=== PATIENT | female | born 1950 | race Caucasian/White ===

== ENCOUNTER → 2016-08-17 10:12 | Outpatient (CLI) | payer MEDICARE, BC ==
[2016-01-12 13:07] VITALS: BMI 24.5
[~2016-08-17 10:12] MED LIST: BONIVA150 MG PO; BREO ELLIPTA 21 EACH; LEVAQUIN500 MG PO; MEDROL DOSE PACK4 MG PO; NEURONTIN 300300 MG PO; REGLAN10 MG PO; RESTORIL15 MG PO; SPIRIVA RESPIMAT; SPIRIVA18 MCG INH; VENTOLIN HFA18 GM INH; VITAMIN D250000 UNIT PO
[2016-08-18 07:17] LABS: IMMUNOGLOBULIN E 19 IU/mL (0-100)
[2016-08-20 12:12] LABS: IMMUNOGLOBULIN A 17 mg/dL (87-352); IMMUNOGLOBULIN G 3366 mg/dL (700-1600)
== END | disposition home or self-care (01) ==
LOC: D.LAB 06-21 08:15 → D.RT 06-21 09:00
PROVIDERS: Internal Medicine Pulmonary Disease
DX: J44.9 Chronic obstructive pulmonary disease, unspecified (principal)

== ENCOUNTER 2016-11-06 13:42 | Emergency (ER) | payer MEDICARE, BC ==
[2016-01-12 13:07] VITALS: BMI 24.5
[2016-11-06 17:11] LABS: BASOPHILS 0.4 % (0.0-2.0); EOSINOPHILS 0.4 % (0-7); HEMATOCRIT 36.1 % (36.0-48.0); LYMPHOCYTES 30.8 % (15-50); MCH 30.7 pg (26.0-34.0); MCHC 33.2 g/dL (31.0-37.0); MCV 92.3 fL (80.0-100.0); MEAN PLATELET VOLUME 9.3 fL (7.4-10.4); NEUTROPHILS 62.4 % (40-80); PLATELET COUNT 238 10x3/uL (130-400); RBC 3.91 10x6/uL (4.00-5.40); RDW 13.5 % (11.5-14.5); WBC 5.2 10x3/uL (4.8-10.8)
[2016-11-06 17:24] LABS: APPEARANCE CLEAR (CLEAR); BILIRUBIN NEGATIVE (NEGATIVE); COLOR YELLOW (YELLOW); GLUCOSE NEGATIVE (NEGATIVE); KETONE NEGATIVE (NEGATIVE); LEUKOCYTE ESTERASE NEGATIVE (NEGATIVE); NITRITE NEGATIVE (NEGATIVE); PROTEIN NEGATIVE (NEGATIVE); UROBILINOGEN NORMAL (NORMAL)
[2016-11-06 18:08] LABS: ALBUMIN 3.4 g/dL (3.4-5.0); ANION GAP 6.8 mmol/L (8-16); BILIRUBIN - TOTAL 0.2 mg/dL (0.2-1.3); CALCIUM 8.7 mg/dL (8.5-10.1); CARBON DIOXIDE 32.3 mmol/L (21.0-32.0); CREATININE - SERUM 0.9 mg/dL (0.6-1.3); POTASSIUM - SERUM 4.1 mmol/L (3.5-5.1); PROTEIN - SERUM 8.5 g/dL (6.4-8.2)
== END 2016-11-06 18:48 | disposition home or self-care (01) ==
LOC: D.ER 13:42
PROVIDERS: Nurse Practitioner Family
DX: J20.9 Acute bronchitis, unspecified (principal); J44.1 Chronic obstructive pulmonary disease with (acute) exacerbation; R06.00 Dyspnea, unspecified

== ENCOUNTER 2016-11-09 20:53 | Emergency (ER) | payer MEDICARE, BC ==
[2016-01-12 13:07] VITALS: BMI 24.5
== END 2016-11-09 22:00 | disposition left against medical advice (07) ==
LOC: D.ER 20:53
DX: R09.89 Other specified symptoms and signs involving the circulatory and respiratory systems (principal)

== ENCOUNTER 2016-11-20 15:33 | Inpatient (IN) | payer MEDICARE, BC ==
[~2016-11-20] VITALS: Ht 162.6 cm; Wt 74.3 kg
[2016-11-20 16:12] VITALS: BP 134/67
[2016-11-20 16:23] LABS: HEMATOCRIT 39.8 % (36.0-48.0); HEMOGLOBIN 13.4 g/dL (12-16); MCH 31.2 pg (26.0-34.0); MCHC 33.7 g/dL (31.0-37.0); MCV 92.6 fL (80.0-100.0); MEAN PLATELET VOLUME 9.4 fL (7.4-10.4); PLATELET COUNT 226 10x3/uL (130-400); RDW 13.1 % (11.5-14.5); WBC 2.8 10x3/uL (4.8-10.8)
[2016-11-20] MEDS ORDERED: TRAZODONE HCL150 MG PO (16:28)
[2016-11-20] MEDS ORDERED: SINGULAIR10 MG PO (16:29)
[2016-11-20] MEDS ORDERED: PROTONIX40 MG PO (16:30)
[2016-11-20] MEDS ORDERED: ATIVAN2 MG PO (16:30)
[2016-11-20] MEDS ORDERED: ZOLOFT100 MG PO (16:30)
[2016-11-20] MEDS ORDERED: TYLENOL W/CODEI1 TAB PO (16:31)
[2016-11-20] MEDS ORDERED: ULTRAM50 MG PO (16:32)
[2016-11-20 16:36] VITALS: BP 134/67; BMI 29.2
[2016-11-20 16:53] LABS: ANION GAP 7.1 mmol/L (8-16); BILIRUBIN - TOTAL 0.17 mg/dL (0.2-1.3); CALCIUM 8.9 mg/dL (8.5-10.1); CARBON DIOXIDE 34.1 mmol/L (21.0-32.0); CREATININE - SERUM 0.9 mg/dL (0.6-1.3); POTASSIUM - SERUM 3.2 mmol/L (3.5-5.1); PROTEIN - SERUM 8.7 g/dL (6.4-8.2)
[2016-11-20 17:24] LABS: EOSINOPHILS 1 % (0-7); LYMPHOCYTES 43 % (15-50); MONOCYTES 6 % (2-11); NEUTROPHILS 50 % (40-80); PLATELET ESTIMATE NORMAL
[2016-11-20 19:00] VITALS: BP 138/63
[2016-11-21 06:12] LABS: ALBUMIN 2.8 g/dL (3.4-5.0); ALKALINE PHOSPHATASE 100 U/L (46-116); ALT (SGPT) 25 U/L (10-68); BILIRUBIN - TOTAL 0.12 mg/dL (0.2-1.3); CALC OSMOLALITY 281 mosm/kg (275-300); CALCIUM 8.6 mg/dL (8.5-10.1); CARBON DIOXIDE 37.4 mmol/L (21.0-32.0); CHLORIDE - SERUM 101 mmol/L (98-107); CREATININE - SERUM 0.7 mg/dL (0.6-1.3); GLUCOSE 162 mg/dL (74-106); SODIUM 139 mmol/L (136-145); UREA NITROGEN 13 mg/dL (7-18); eGFR NON AFRICAN AMERICAN 88 mL/min (90-120)
[2016-11-21 06:21] LABS: POTASSIUM - SERUM 4.1 mmol/L (3.5-5.1)
--- NOTE | 2016-11-21 06:30 | NUR ---
RECEIVED PT REPORT. NO OTHER NEEDS AT THIS TIME. WILL CONTINUE POC....
--- NOTE | 2016-11-21 06:44 | NUR ---
PT LYING IN BED, EYES CLOSED, RESPIRATIONS EVEN AND UNLABORED. PT EASILY ROUSABLE TO VERBAL STIMULI. PT DENIES ANY ACUTE NEEDS. CONTINUE TO MONITOR CLOSELY.
[2016-11-21 07:25] LABS: BASOPHILS 0 % (0.0-2.0); EOSINOPHILS 0 % (0-7); HEMATOCRIT 39.4 % (36.0-48.0); LYMPHOCYTES 31.9 % (15-50); MCH 30.7 pg (26.0-34.0); MCV 92.9 fL (80.0-100.0); MEAN PLATELET VOLUME 9.4 fL (7.4-10.4); MONOCYTES 4.4 % (2-11); NEUTROPHILS 63.7 % (40-80); PLATELET COUNT 237 10x3/uL (130-400); RBC 4.24 10x6/uL (4.00-5.40); RDW 13.4 % (11.5-14.5)
[2016-11-21 07:26] LABS: WBC 0.9 10x3/uL (4.8-10.8)
[2016-11-21 08:50] VITALS: BP 143/60
[2016-11-21 10:06] VITALS: Ht 162.6 cm; Wt 74.3 kg
[2016-11-21 11:54] VITALS: BP 129/66
--- NOTE | 2016-11-21 12:14 | NUR ---
PT IS ALERT. ASSESSMENT DONE PER FLOWSHEET. NO OTHER NEEDS AT THIS TIME. WILL CONTINUE TO MONITOR.
--- NOTE | 2016-11-21 13:05 | NUR ---
PT IS ALERT. NO SS OF DISTRESS WILL CONTINUE TO MONITOR.
[2016-11-21 16:09] VITALS: BP 152/68
--- NOTE | 2016-11-21 16:16 | NUR ---
IV ACCESS-20 GAUGE INSERTED IN LEFT HAND FOR ACCESS. SANJUANITA ELLIS RN
[2016-11-21 19:00] VITALS: BP 159/74
[2016-11-22] VITALS (7 sets, daily range): BP systolic 126–164; BP diastolic 63–88
[2016-11-22 06:06] LABS: HEMATOCRIT 36.9 % (36.0-48.0); HEMOGLOBIN 12.1 g/dL (12-16); MCH 30.8 pg (26.0-34.0); MCHC 32.8 g/dL (31.0-37.0); MCV 93.9 fL (80.0-100.0); PLATELET COUNT 245 10x3/uL (130-400); RBC 3.93 10x6/uL (4.00-5.40); RDW 13.9 % (11.5-14.5); WBC 21.9 10x3/uL (4.8-10.8)
[2016-11-22 06:35] LABS: ALBUMIN 2.5 g/dL (3.4-5.0); ALKALINE PHOSPHATASE 82 U/L (46-116); ALT (SGPT) 21 U/L (10-68); BILIRUBIN - TOTAL 0.19 mg/dL (0.2-1.3); CALC OSMOLALITY 288 mosm/kg (275-300); CALCIUM 8.6 mg/dL (8.5-10.1); CHLORIDE - SERUM 106 mmol/L (98-107); CREATININE - SERUM 0.8 mg/dL (0.6-1.3); GLUCOSE 122 mg/dL (74-106); POTASSIUM - SERUM 3.8 mmol/L (3.5-5.1); PROTEIN - SERUM 7.7 g/dL (6.4-8.2); SODIUM 144 mmol/L (136-145); UREA NITROGEN 14 mg/dL (7-18); eGFR NON AFRICAN AMERICAN 75 mL/min (90-120)
[2016-11-22 07:02] LABS: LYMPHOCYTES 3 % (15-50); MONOCYTES 4 % (2-11); NEUTROPHILS 79 % (40-80)
[2016-11-22 07:03] LABS: HYPOCHROMASIA OCC; PLATELET ESTIMATE NORMAL
--- NOTE | 2016-11-22 07:26 | NUR ---
PATIENT HAD COMPLAINTS OF PAIN 8/10 ON PAIN SCALE. PATIENT REPOSITIONED AND GIVEN PRN MORPHINE FOR PAIN. BED LOW, CALL LIGHT IN REACH, RAILS UP X2
--- NOTE | 2016-11-22 08:22 | NUR ---
SPOKE TO RADIOLOGY AND WAS TOLD THE CTA WAS DONE LAST NIGHT. OK FOR PATIENT TO EAT TODAY. BREAKFAST TRAY GIVEN.
--- NOTE | 2016-11-22 08:25 | NUR ---
AM ROUNDING MADE WITH PATIENT IN NEUTRO PRECAUTIONS. CARE MANAGEMENT COORDINATOR SAID THAT DR DEGROOT TOLD HER THAT SHE COULD COME OUT OF ISOLATION BUT NO ORDER SEEN. LEFT HAND SEEN WITH SALINE LOCK, LEFT AC WITH NS INFUSING AT 75 CC/HR. ON HEART MONITOR SHOWING ST, HR 106. ON 2L PER NC AT PRESENT. ON EP, WILL MONITOR LABS.
--- NOTE | 2016-11-22 08:43 | NUR ---
0842-CALL PLACED TO DR DEGROOT OFFICE TO SEE ABOUT ISOLATION, NEW ORDERS RECEIVED.
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
--- NOTE | 2016-11-22 16:11 | NUR ---
Patient Name: HUMPHREY SCOTT Admission Status: Urgent Accout number: [id number] Admission Date: 11-20-2016 : 1950 Admission Diagnosis:ACUTE AND CHRONIC RESPIRATORY FAILURE WITH HYPOXIA Attending: ANTONIETA Current LOS: 2 Anticipated DC Date: TO BE DETERMINED Planned Disposition: Home Primary Insurance: MEDICARE A & B Discharge Planning Comments: * Is the patient Alert and Oriented? Yes 0 * How many steps to enter\exit or inside your home? 3-4 0 * PCP DR. RODRIGUEZ 0 * Pharmacy [facility] * Preadmission Environment Home with Family 0 * ADLs Independent 0 * Equipment Cane Nebulizer Other Oxygen Shower Chair Walker 0 * Other Equipment HOME AND PORTABLE OXYGEN PULSE OXIMETER [employer] - MEDICAL EQUIPMENT PROVIDER PREFERENCE 0 * List name and contact numbers for known caregivers / representatives who currently or will assist patient after discharge: BOBBY SCOTT, SPOUSE, 0 * Community resources currently utilized None 0 * Please name any agencies selected above. NONE 0 * Additional services required to return to the preadmission environment? No 0 * Can the patient safely return to the preadmission environment? Yes 0 * Has this patient been hospitalized within the prior 30 days at any hospital? No 0 CM MET WITH PT IN ROOM TO DISCUSS DISCHARGE PLANNING AND NEEDS. PT REPORTS LIVING AT HOME INDEPENDENTLY WITH HER SPOUSE. PT HAS HOME AND PORTABLE OXYGEN, CANE, WALKER SHOWERCHAIR, NEBULIZER AND PULSE OXIMETER, PROVIDED BY [employer]. PT HAS NO OUTSIDE SERVICES ASSISTING IN THE HOME. CM DISCUSSED AVAILABILITY OF HOME HEALTH, REHAB SERVICES AND MEDICAL EQUIPMENT. PT DENIES DISCHARGE NEEDS, REPORTS HER SPOUSE WILL PICK HER UP FOR DISCHARGE HOME. CM LEFT HOME HEALTH INFORMATION WITH PT ALONG WITH CM CONTACT INFORMATION FOR CONSIDERATION BY PT. PT PLANS TO DISCHARGE HOME WITH SPOUSE, DOES NOT ANTICIPATE DISCHARGE NEEDS, WOULD CONSIDER HOME HEALTH IF THE DOCTOR FEELS IT TO BE NECESSARY. It Support Analyst: Darron Hinton
--- NOTE | 2016-11-22 19:25 | NUR ---
RECEIVED REPORT FROM DAY NURSE, AT BEDSIDE, COMPLAINS ON PAIN, WILL GIVE MORPHINE, BED IS LOW, SRX2, WILL CONTINUE TO MONITOR. CALL LIGHT IN REACH
[2016-11-23] VITALS: BP 119/52
--- NOTE | 2016-11-23 04:16 | NUR ---
PRECISION OPTICS TECHNICIAN AT BEDSIDE TO OBTAIN VITALS, CALL LIGHT IN REACH. WILL CONTINUE WITH PLAN OF CARE.
[2016-11-23 04:45] LABS: BASOPHILS 0.1 % (0.0-2.0); EOSINOPHILS 0 % (0-7); HEMATOCRIT 38.2 % (36.0-48.0); HEMOGLOBIN 12.2 g/dL (12-16); IMMATURE GRANULOCYTES 0.9 % (0-5); LYMPHOCYTES 4.2 % (15-50); MCH 30.6 pg (26.0-34.0); MCHC 31.9 g/dL (31.0-37.0); MCV 95.7 fL (80.0-100.0); MEAN PLATELET VOLUME 9.1 fL (7.4-10.4); MONOCYTES 1.1 % (2-11); NEUTROPHILS 93.7 % (40-80); PLATELET COUNT 248 10x3/uL (130-400); RBC 3.99 10x6/uL (4.00-5.40); RDW 14.5 % (11.5-14.5); WBC 17.6 10x3/uL (4.8-10.8)
--- NOTE | 2016-11-23 05:01 | NUR ---
PT HAS REST ALL NIGHT, CALL LIGHT IN REACH, BED IS LOW, SRX2, WILL CONTINUE TO MONITOR
[2016-11-23 05:23] LABS: ERYTHROCYTE SEDIMENTATION RATE 14 mm/hr (0-30)
[2016-11-23 05:24] LABS: ALBUMIN 2.4 g/dL (3.4-5.0); ALKALINE PHOSPHATASE 92 U/L (46-116); ALT (SGPT) 17 U/L (10-68); BILIRUBIN - TOTAL 0.19 mg/dL (0.2-1.3); CALC OSMOLALITY 294 mosm/kg (275-300); CALCIUM 8.5 mg/dL (8.5-10.1); CARBON DIOXIDE 34.2 mmol/L (21.0-32.0); CHLORIDE - SERUM 110 mmol/L (98-107); CREATININE - SERUM 0.8 mg/dL (0.6-1.3); GLUCOSE 135 mg/dL (74-106); POTASSIUM - SERUM 3.6 mmol/L (3.5-5.1); PROTEIN - SERUM 7.4 g/dL (6.4-8.2); SODIUM 147 mmol/L (136-145); UREA NITROGEN 16 mg/dL (7-18); eGFR NON AFRICAN AMERICAN 75 mL/min (90-120)
[2016-11-23 05:25] LABS: C-REACTIVE PROTEIN 0.2 mg/dL (0.0-0.9)
--- NOTE | 2016-11-23 07:18 | NUR ---
AM ROUNDS - PT IN BED SLEEPING WITH EQUAL AND NON LABORED BREATHING. 2L O2 VIA NC. LEFT HAND IV WITH NS RUNNING AT 75 CC/HR AND LEFT AC THAT IS SL. WILL CONTINUE TO MONITOR.
[2016-11-23 08:19] VITALS: BP 181/82
--- NOTE | 2016-11-23 10:42 | NUR ---
PATIENT'S IV FLUIDS IS DECREASED TO 25 CC/HR UNTIL MD MAKES ROUNDS SHE IS HAVING NORE EDEMA TO ALL EXTREMITIES.
--- NOTE | 2016-11-23 10:44 | NUR ---
PT C/O OF PAIN TO LEFT SIDE 02/18. PT STATES THE MEDICATION SHE HAS ORDERED DOES NOT WORK. STATES THAT SHE TAKES ULTRAM AT HOME. PAGE INTO [facility]
--- NOTE | 2016-11-23 10:50 | NUR ---
[facility] CALLED BACK WITH NEW PAIN MEDICATION ORDERS.
[2016-11-23 12:44] VITALS: BP 170/80
--- NOTE | 2016-11-23 13:41 | NUR ---
Nutrition Follow Up: Pt reported that her appetite was okay. She refused supplements at this time. Pt appeared in a great deal of pain. Spoke with RN who reported that pt had not been eating much despite encouragement from staff, pt's . Pt is eating 17% meal avg on an AHA diet. Wt loss 1# since admit. +BM 11/23/16. Labs reviewed. Meds noted including NS @ 75 ml/hr, Solu-Medrol, Vit D. Pt is not meeting est nutritional needs. Will liberalize diet to regular to promote po intake. Will continue to send selective menus and honor food preferences. RD following.
[2016-11-23 16:00] VITALS: BP 160/71
[2016-11-23 19:00] VITALS: BP 176/86
--- NOTE | 2016-11-23 19:30 | NUR ---
RESUMED CARE OF PT, AT BED SIDE,IV-L.HAND-NS-75, LAC-SL, 02-2L, BED IS LOW, SRX2, CALL LIGHT IN REACH, WILL CONTINUE TO MONITOR
--- NOTE | 2016-11-23 23:10 | NUR ---
PT RESTING QUIETLY WITHOUT C/O OR DISTRESS NOTED. FEW NEEDS VOICED. CALL LIGHT WITHIN REACH. WILL CONT TO MONITOR.
[2016-11-24] VITALS: BP 149/73
[2016-11-24 04:00] VITALS: BP 169/87
[2016-11-24 04:48] LABS: BASOPHILS 0 % (0.0-2.0); EOSINOPHILS 0 % (0-7); HEMOGLOBIN 11.5 g/dL (12-16); IMMATURE GRANULOCYTES 0.5 % (0-5); LYMPHOCYTES 4.5 % (15-50); MCH 30.1 pg (26.0-34.0); MCHC 31.9 g/dL (31.0-37.0); MCV 94.2 fL (80.0-100.0); MEAN PLATELET VOLUME 9.1 fL (7.4-10.4); MONOCYTES 1.2 % (2-11); NEUTROPHILS 93.8 % (40-80); PLATELET COUNT 219 10x3/uL (130-400); RBC 3.82 10x6/uL (4.00-5.40); RDW 14.2 % (11.5-14.5); WBC 10.3 10x3/uL (4.8-10.8)
[2016-11-24 05:13] LABS: ALBUMIN 2.3 g/dL (3.4-5.0); ALKALINE PHOSPHATASE 90 U/L (46-116); ALT (SGPT) 16 U/L (10-68); BILIRUBIN - TOTAL 0.21 mg/dL (0.2-1.3); CALC OSMOLALITY 286 mosm/kg (275-300); CALCIUM 8.1 mg/dL (8.5-10.1); CARBON DIOXIDE 36.5 mmol/L (21.0-32.0); CHLORIDE - SERUM 106 mmol/L (98-107); CREATININE - SERUM 0.7 mg/dL (0.6-1.3); GLUCOSE 141 mg/dL (74-106); POTASSIUM - SERUM 3.1 mmol/L (3.5-5.1); PROTEIN - SERUM 6.8 g/dL (6.4-8.2); SODIUM 143 mmol/L (136-145); UREA NITROGEN 13 mg/dL (7-18); eGFR NON AFRICAN AMERICAN 88 mL/min (90-120)
--- NOTE | 2016-11-24 07:47 | NUR ---
RESTS WITH EYES CLOSED. IV PATENT. CALL LIGHT IN REACH. WILL MONITOR NEEDS.
[2016-11-24 08:12] VITALS: BP 146/65
--- NOTE | 2016-11-24 08:19 | NUR ---
PT RESTING IN BED WITH EYES OPEN CALL LIGHT IN REACH WILL MONITER
[2016-11-24 11:49] VITALS: BP 124/63
--- NOTE | 2016-11-24 14:40 | NUR ---
PT RESTING IN BED WITH EYES OPEN AT BEDSIDE CALL LIGHT IN REACH INSTRUCTED PT ON BREATHING THRU HER NOSE AND OUT HER MOUTH
[2016-11-24 15:51] VITALS: BP 159/78
[2016-11-24 20:07] LABS: ANA REFLEX - DIRECT Negative (Negative)
[2016-11-24 20:57] VITALS: BP 125/83
[2016-11-25 00:30] VITALS: BP 147/68
--- NOTE | 2016-11-25 02:12 | NUR ---
PT RESTING WELL WITHOUT C/O OR DISTRESS NOTED. CALL LIGHT WITHIN REACH. NO NEEDS VOICED. WILL MONITOR.
--- NOTE | 2016-11-25 03:21 | NUR ---
ASSESSMENT COMPLETE, SLEEPING, CALL LIGHT IN REACH, BED IS LOW, SRX2, WILL CONTINUE TO MONITOR
[2016-11-25 04:30] VITALS: BP 171/88
--- NOTE | 2016-11-25 07:41 | NUR ---
PATIENT GIVEN PRN ULTRAM FOR BACK AND SIDE PATIENT. TELEMETRY RUNNING SR 72. OXYGEN ON AT 2L PER N/C LEFT HAND PERIPHERAL NS AT 50CC/HR. ALERT/ORIENT X4
[2016-11-25 08:06] LABS: BASOPHILS 0.2 % (0.0-2.0); EOSINOPHILS 0 % (0-7); HEMATOCRIT 39.9 % (36.0-48.0); HEMOGLOBIN 13.3 g/dL (12-16); IMMATURE GRANULOCYTES 1.2 % (0-5); LYMPHOCYTES 13.1 % (15-50); MCHC 33.3 g/dL (31.0-37.0); MEAN PLATELET VOLUME 9.4 fL (7.4-10.4); MONOCYTES 5.9 % (2-11); NEUTROPHILS 79.6 % (40-80); PLATELET COUNT 245 10x3/uL (130-400); RBC 4.29 10x6/uL (4.00-5.40); RDW 14.1 % (11.5-14.5)
[2016-11-25 08:12] VITALS: BP 183/87
[2016-11-25 08:14] LABS: WBC 4.9 10x3/uL (4.8-10.8)
--- NOTE | 2016-11-25 08:21 | NUR ---
SCHDULED ATIVAN AND ZOLOFT GIVEN FOR ANXIEITY
[2016-11-25 08:24] LABS: ALBUMIN 2.7 g/dL (3.4-5.0); ALKALINE PHOSPHATASE 112 U/L (46-116); BILIRUBIN - TOTAL 0.31 mg/dL (0.2-1.3); CALCIUM 8.4 mg/dL (8.5-10.1); CARBON DIOXIDE 39.1 mmol/L (21.0-32.0); CHLORIDE - SERUM 101 mmol/L (98-107); CREATININE - SERUM 0.6 mg/dL (0.6-1.3); GLUCOSE 114 mg/dL (74-106); POTASSIUM - SERUM 3.2 mmol/L (3.5-5.1); PROTEIN - SERUM 7.9 g/dL (6.4-8.2); SODIUM 142 mmol/L (136-145); eGFR NON AFRICAN AMERICAN > 90 mL/min (90-120)
[2016-11-25 08:25] LABS: ALT (SGPT) 22 U/L (10-68); CALC OSMOLALITY 282 mosm/kg (275-300); UREA NITROGEN 9 mg/dL (7-18)
--- NOTE | 2016-11-25 11:40 | NUR ---
PRN ULTRUM PAIN MEDICATION GIVEN FOR BACK AND SIDE PAIN.
[2016-11-25 11:52] VITALS: BP 182/96
--- NOTE | 2016-11-25 12:36 | NUR ---
RESTS IN BED WITH EYES CLOSED. IV PATENT. CALL LIGHT IN REACH. WILL CONT. PLAN OF CARE.
--- NOTE | 2016-11-25 14:45 | NUR ---
PATIENT HAS A ROOM FULL OF VISITIORS.
[2016-11-25 15:13] VITALS: BP 164/79
--- NOTE | 2016-11-25 15:57 | NUR ---
PRN ULTRUM GIVEN. PERIPHERIAL LINE OUT ON LEFT HAND. NEW SITE 24 ASH[place] ON RIGHT HAND INSERTED
[2016-11-25 20:00] VITALS: BP 156/69
--- NOTE | 2016-11-25 20:50 | NUR ---
PT AWAKE, ALERT, ORIENTED, C/O GREAT PAIN IN HER LEFT SIDE AND BEING VERY ANXIOUS. PT STATES SHE HAS NOT HAD A GOOD DAY. PT DENIES ANY ACUTE NEEDS, WILL CONTINUE TO MONITOR CLOSELY. BED LOW, CALL LIGHT IN REACH, SIDE RAILS X 2, HOB 20 DEGREES.
[2016-11-26] VITALS: BP 115/65
[2016-11-26 04:00] VITALS: BP 147/76
--- NOTE | 2016-11-26 05:26 | NUR ---
PT LYING IN BED, EYES CLOSED, RESPIRATIONS EVEN AND UNLABORED. PT EASILY ROUSABLE TO VERBAL STIMULI, DENIES ANY ACUTE NEEDS. CONTINUE TO MONITOR CLOSELY.
[2016-11-26 06:11] LABS: CALCIUM 8.9 mg/dL (8.5-10.1); CHLORIDE - SERUM 99 mmol/L (98-107); CREATININE - SERUM 0.6 mg/dL (0.6-1.3); GLUCOSE 141 mg/dL (74-106); POTASSIUM - SERUM 3.4 mmol/L (3.5-5.1); SODIUM 140 mmol/L (136-145); eGFR NON AFRICAN AMERICAN > 90 mL/min (90-120)
[2016-11-26 06:13] LABS: CALC OSMOLALITY 280 mosm/kg (275-300); CARBON DIOXIDE 41.9 mmol/L (21.0-32.0); UREA NITROGEN 13 mg/dL (7-18)
[2016-11-26 06:34] LABS: BASOPHILS 0.3 % (0.0-2.0); EOSINOPHILS 0 % (0-7); HEMATOCRIT 39.8 % (36.0-48.0); HEMOGLOBIN 13.1 g/dL (12-16); IMMATURE GRANULOCYTES 1.2 % (0-5); LYMPHOCYTES 12.1 % (15-50); MCH 30.6 pg (26.0-34.0); MCHC 32.9 g/dL (31.0-37.0); MEAN PLATELET VOLUME 9.5 fL (7.4-10.4); MONOCYTES 8.9 % (2-11); NEUTROPHILS 77.5 % (40-80); PLATELET COUNT 245 10x3/uL (130-400); RBC 4.28 10x6/uL (4.00-5.40); RDW 13.8 % (11.5-14.5)
[2016-11-26 07:05] LABS: WBC 3.5 10x3/uL (4.8-10.8)
[2016-11-26 08:43] VITALS: BP 131/73
--- NOTE | 2016-11-26 10:00 | NUR ---
ADMINISTERED MORNING MEDICATIONS, AND 100MG OF ULTRAM FOR PAIN LEVEL OF 10/10. PT IN BED, IVPB ANTIBIOTIC STARTED TO RIGHT HAND. PT ASSESSED AT THIS TIME, PT DENIES ANY NEEDS AT THIS TIME. CALL LIGHT IN REACH, NAD NOTED, WILL CONTINUE TO MONITOR.
--- NOTE | 2016-11-26 11:38 | NUR ---
K OF 3.0, ADMINISTERED 40MEQ OF K PER PROTOCOL. PT STATED PAIN HAS GOTTEN A LITTLE BETTER, DENIES ANY OTHER NEEDS AT THIS TIME, STUDENT SUCCESS COUNSELOR AT BEDSIDE TO GET VITAL SIGNS, FAMILY AT BEDSIDE, NAD NOTED, WILL CONTINUE TO MONITOR.
[2016-11-26 13:14] VITALS: BP 165/80
--- NOTE | 2016-11-26 15:06 | NUR ---
PT IN BED, DENIES ANY NEEDS AT THIS TIME, CALL LIGHT IN REACH, NAD NOTED, WILL CONTINUE TO MONITOR.
[2016-11-26 17:16] VITALS: BP 149/86
--- NOTE | 2016-11-26 17:46 | NUR ---
Rehab Prescreen order received. The patient appears to be a good IRF candidate. Will follow at this time and plan for admit when ready for discharge from the acute hospital & ok with consulting physicians for discharge. Thank you for this referral! Georgia Butcher RN Clinical Liaison, [facility] Rehab/David
[2016-11-26 20:00] VITALS: BP 148/82
--- NOTE | 2016-11-26 20:14 | NUR ---
PT AWAKE, ALERT, ORIENTED, LYING IN BED, DENIES ANY ACUTE NEEDS. PT STATES HER IS TRYING TO GET HER TRANSFERRED TO [facility] FOR HER CHRONIC BACK PAIN. CONTINUE TO MONITOR CLOSELY. BED LOW, CALL LIGHT IN REACH, SIDE RAILS X 2, HOB 20 DEGREES.
[2016-11-27 00:36] VITALS: BP 124/69
[2016-11-27 03:09] LABS: MYCOPLASMA PNEUMO IGG <100 U/mL (0-99)
--- NOTE | 2016-11-27 04:31 | NUR ---
PT LYING IN BED ON RIGHT SIDE, EYES CLOSED, RESPIRATIONS EVEN AND UNLABORED. PT IS EASILY ROUSABLE TO VERBAL STIMULI. CONTINUE TO MONITOR CLOSELY. HOB 25-30 DEGREES. BED LOW, CALL LIGHT IN REACH, SIDE RAILS X 2.
[2016-11-27 04:59] VITALS: BP 124/96
[2016-11-27 05:41] LABS: CALC OSMOLALITY 280 mosm/kg (275-300); CALCIUM 8.5 mg/dL (8.5-10.1); CARBON DIOXIDE 39.5 mmol/L (21.0-32.0); CHLORIDE - SERUM 101 mmol/L (98-107); CREATININE - SERUM 0.7 mg/dL (0.6-1.3); POTASSIUM - SERUM 3.8 mmol/L (3.5-5.1); SODIUM 141 mmol/L (136-145); UREA NITROGEN 16 mg/dL (7-18); eGFR NON AFRICAN AMERICAN 88 mL/min (90-120)
[2016-11-27 05:59] LABS: GLUCOSE 85 mg/dL (74-106)
--- NOTE | 2016-11-27 07:10 | NUR ---
RECEIVED REPORT FROM ROOFING APPLICATOR NURSE ELIZABETH CUEVAS, PT IN BED, STATES THAT SHE IS STILL HAVING PAIN, EVEN THOUGH PAIN MED WAS GIVEN ABOUT AN HOUR AGO. ASKED PT IF SHE WANTED A HEAT PAD OR ICE TO PLACE ON HER BACK OR TO BE REPOSITIONED IN BED, PT STATED "NO", PT DENIES ANY OTHER NEEDS AT THIS TIME. CALL LIGHT IN REACH, NAD NOTED, WILL CONTINUE TO MONITOR.
[2016-11-27 07:22] LABS: BASOPHILS 0 % (0.0-2.0); EOSINOPHILS 0.5 % (0-7); HEMATOCRIT 41.4 % (36.0-48.0); HEMOGLOBIN 13.3 g/dL (12-16); LYMPHOCYTES 42.2 % (15-50); MCH 30.7 pg (26.0-34.0); MCHC 32.1 g/dL (31.0-37.0); MEAN PLATELET VOLUME 9.7 fL (7.4-10.4); MONOCYTES 13.2 % (2-11); NEUTROPHILS 42.1 % (40-80); PLATELET COUNT 244 10x3/uL (130-400); RBC 4.33 10x6/uL (4.00-5.40)
[2016-11-27 07:41] LABS: MCV 95.6 fL (80.0-100.0); WBC 4.4 10x3/uL (4.8-10.8)
[2016-11-27 07:49] VITALS: BP 147/79
--- NOTE | 2016-11-27 10:20 | NUR ---
ADMINISTERED 100MG OF ULTRAM FOR PAIN LEVEL OF 8/10. PT DENIES ANY AT THIS TIME, FAMILY AT BEDSIDE, NAD NOTED, CALL LIGHT IN REACH, WILL CONTINUE TO MONITOR.
[2016-11-27 11:19] VITALS: BP 150/84
[2016-11-27] MEDS ORDERED: NORVASC5 MG PO (14:02)
[2016-11-27] MEDS ORDERED: PREDNISONE10 MG PO (14:02)
[2016-11-27] MEDS ORDERED: MUCINEX DM ER1 EAC1 PO (14:02)
[2016-11-27] MEDS ORDERED: ZANAFLEX4 MG PO (14:09)
[2016-11-27] MEDS ORDERED: ALBUTEROL2.5 MG/3 M UPD (14:09)
[2016-11-27] MEDS ORDERED: VIIBRYD10 MG PO (14:10)
[2016-11-27] MEDS ORDERED: CARAFATE1 G PO (14:13)
--- NOTE | 2016-11-27 14:28 | NUR ---
Patient Name: HUMPHREY SCOTT Encounter No: [id number] : 1950 Primary Insurance: MEDICARE A & B Anticipated DC Date: TO BE DETERMINED Planned Disposition: Home DCP follow-up note: CM RECEIVED INPATIENT REHAB PRESCREEN ORDER, SPOKE TO PT AND FAMILY IN ROOM, DISCUSSED REHAB OPTIONS AND PROVIDERS. PT DOES NOT THINK SHE CAN TOLERATE ANY LEVEL OF PHYSICAL THERAPY WITH HER CURRENT BACK PAIN THAT HAS NOT BEEN TREATED. PT'S SON REPORTS HER SYMPTOMS ARE BEING DULLED BY PAIN MEDICATION BUT THE SOURCE OF PAIN HAS NOT BEEN TREATED. PT REPORTS THAT SHE WANTS TRANSFERRED TO [facility] IN [place]; FAMILY HAS CONTACTED DR. COREAS IS WATING ON RECORDS. CM EXPLAINED LATERAL TRANSFER AND IF SO, INSURANCE MAY NOT PAY FOR TRANSFER TO ANOTHER HOSPITAL. CM EXPLAINED THAT CM CAN NOT BEGIN TO WORK ON ANY TRANSFER WITHOUT DOCTORS ORDERS. IMPORTANT MESSAGE FROM MEDICARE PROVIDED AND EXPLAINED. CM NOTIFIED JACOBO GONZALEZ. CM TO CONTINUE TO FOLLOW AND ASSIST NEEDED. Darron Hinton, CASE MANAGEMENT
[2016-11-27 15:25] VITALS: BP 153/58
[2016-11-27] MEDS ORDERED: COMBIVENT RESPIM4 GM INH (15:33)
--- NOTE | 2016-11-27 17:14 | NUR ---
PROVIDED VERBAL AND WRITTEN DISCHARGE TEACHING TO PT AND FAMILY. BOTH VERBALIZED UNDERSTANDING REGARDING DISCHARGE TEACHING. D/C RIGHT FOREARM IV, TIP INTACT. HEART MONITOR D/C. WILL CALL FOR WHEELCHAIR. 1719- PT LEFT UNIT VIA WHEELCHAIR, NAD NOTED.
== END 2016-11-27 17:19 | disposition home or self-care (01) | DRG 189 ==
LOC: D.M2 15:33
PROVIDERS: Internal Medicine Pulmonary Disease; ADMIT Emergency Medicine
DX: J96.21 Acute and chronic respiratory failure with hypoxia (principal); J15.212 Pneumonia due to Methicillin resistant Staphylococcus aureus; J69.0 Pneumonitis due to inhalation of food and vomit; J44.0 Chronic obstructive pulmonary disease with (acute) lower respiratory infection; J44.1 Chronic obstructive pulmonary disease with (acute) exacerbation; F17.203 Nicotine dependence unspecified, with withdrawal; J30.9 Allergic rhinitis, unspecified; I10 Essential (primary) hypertension; K21.9 Gastro-esophageal reflux disease without esophagitis; R91.1 Solitary pulmonary nodule; M19.90 Unspecified osteoarthritis, unspecified site; M81.0 Age-related osteoporosis without current pathological fracture; E21.3 Hyperparathyroidism, unspecified; E31.21 Multiple endocrine neoplasia [MEN] type I; D72.819 Decreased white blood cell count, unspecified; E55.9 Vitamin D deficiency, unspecified; F41.9 Anxiety disorder, unspecified; I34.0 Nonrheumatic mitral (valve) insufficiency; M79.7 Fibromyalgia

== ENCOUNTER → 2017-05-22 08:42 | Outpatient (CLI) | payer MEDICARE, BC ==
[2016-11-21 10:06] VITALS: BMI 29.2
[~2017-05-22 08:42] MED LIST changes: +ALBUTEROL2.5 MG/3 M UPD; +ATIVAN2 MG PO; +CARAFATE1 G PO; +COMBIVENT RESPIM4 GM INH; +MUCINEX DM ER1 EAC1 PO; +NORVASC5 MG PO; +PREDNISONE10 MG PO; +PROTONIX40 MG PO; +SINGULAIR10 MG PO; +TRAZODONE HCL150 MG PO; +TYLENOL W/CODEI1 TAB PO; +ULTRAM50 MG PO; +VIIBRYD10 MG PO; +ZANAFLEX4 MG PO; +ZOLOFT100 MG PO
== END | disposition home or self-care (01) ==
LOC: D.RT 05-21 10:00 → D.CT 08:42 → D.RT 10:00
DX: R91.1 Solitary pulmonary nodule (principal); J44.9 Chronic obstructive pulmonary disease, unspecified

== ENCOUNTER → 2017-12-11 12:51 | Outpatient (CLI) | payer MEDICARE, BC ==
[2016-11-21 10:06] VITALS: BMI 29.2
== END | disposition home or self-care (01) ==
LOC: D.RAD 12-06 13:00
DX: T17.928A Food in respiratory tract, part unspecified causing other injury, initial encounter (principal)

== ENCOUNTER → 2018-06-11 08:20 | Outpatient (CLI) | payer MEDICARE, BC ==
[2016-11-21 10:06] VITALS: BMI 29.2
[2018-06-11 09:34] LABS: ALBUMIN 3.3 g/dL (3.4-5.0); BILIRUBIN - DIRECT 0.11 mg/dL (0.00-0.30); BILIRUBIN - INDIRECT 0.15 mg/dL (0.00-1.00); BILIRUBIN - TOTAL 0.26 mg/dL (0.2-1.3); PROTEIN - SERUM 8.5 g/dL (6.4-8.2)
== END | disposition home or self-care (01) ==
LOC: D.MRI 06-10 08:00 → D.LAB 06-10 09:00
PROVIDERS: Internal Medicine Gastroenterology
DX: R10.13 Epigastric pain (principal); K92.1 Melena; K83.8 Other specified diseases of biliary tract

== ENCOUNTER → 2018-06-17 19:41 | Outpatient (CLI) | payer MEDICARE, BC ==
[2016-11-21 10:06] VITALS: BMI 29.2
== END | disposition home or self-care (01) ==
LOC: D.MAMMO 13:15
DX: Z12.31 Encounter for screening mammogram for malignant neoplasm of breast (principal)

== ENCOUNTER → 2018-12-29 13:28 | Outpatient (CLI) | payer MEDICARE, BC ==
[2016-11-21 10:06] VITALS: BMI 29.2
== END | disposition home or self-care (01) ==
LOC: D.RT 13:00
PROVIDERS: ATTEND Internal Medicine Pulmonary Disease
DX: R91.8 Other nonspecific abnormal finding of lung field (principal); J44.9 Chronic obstructive pulmonary disease, unspecified

== ENCOUNTER → 2019-03-02 08:41 | Outpatient (CLI) | payer MEDICARE, BC ==
[2016-11-21 10:06] VITALS: BMI 29.2
== END | disposition home or self-care (01) ==
LOC: D.CT 08:41
PROVIDERS: ATTEND Internal Medicine Pulmonary Disease
DX: R91.8 Other nonspecific abnormal finding of lung field (principal)

== ENCOUNTER 2019-10-08 16:36 | Emergency (ER) | payer MEDICARE, BC ==
[~2019-10-08] VITALS: Ht 162.6 cm; Wt 84.5 kg
[2019-10-08 16:45] VITALS: Ht 162.6 cm; Wt 84.5 kg
[2019-10-08 18:43] VITALS: BP 157/80
[2019-10-08 19:07] LABS: BASOPHILS 0.4 % (0-2); HEMATOCRIT 36.3 % (36.0-48.0); HEMOGLOBIN 11.8 g/dL (12-16); IMMATURE GRANULOCYTES 0.2 % (0-5); LYMPHOCYTES 27.6 % (15-50); MCH 29.3 pg (26.0-34.0); MCHC 32.5 g/dL (31.0-37.0); MCV 90.1 fL (80.0-100.0); MEAN PLATELET VOLUME 9.9 fL (7.4-10.4); MONOCYTES 7.9 % (2-11); NEUTROPHILS 61.9 % (40-80); PLATELET COUNT 257 10x3/uL (130-400); RBC 4.03 10x6/uL (4.00-5.40); RDW 13.6 % (11.5-14.5); WBC 4.9 10x3/uL (4.8-10.8)
[2019-10-08 19:09] LABS: BILIRUBIN NEGATIVE (NEGATIVE); GLUCOSE NEGATIVE (NEGATIVE); KETONE NEGATIVE (NEGATIVE); NITRITE NEGATIVE (NEGATIVE); SPECIFIC GRAVITY 1.025 (1.005-1.020); UROBILINOGEN NORMAL (NORMAL)
[2019-10-08 19:10] LABS: AMORPHOUS SEDIMENT >1+ /lpf (NONE SEEN); BACTERIA MODERATE /hpf (NEGATIVE); GRANULAR CAST 0-5 /lpf (NONE SEEN); HYALINE CAST 0-5 /lpf (NONE SEEN)
[2019-10-08 19:21] LABS: ANION GAP 4.7 mmol/L (8-16); CALCIUM 8.9 mg/dL (8.5-10.1); CARBON DIOXIDE 36.1 mmol/L (21.0-32.0); POTASSIUM - SERUM 3.8 mmol/L (3.5-5.1)
[2019-10-08 19:31] LABS: ALBUMIN 3.3 g/dL (3.4-5.0); BILIRUBIN - TOTAL 0.33 mg/dL (0.2-1.3); PROTEIN - SERUM 9.3 g/dL (6.4-8.2)
[2019-10-08] MEDS ORDERED: LEVOFLOXACIN500 MG PO (21:50)
== END 2019-10-08 22:10 | disposition home or self-care (01) ==
LOC: D.ER 16:36
PROVIDERS: Emergency Medicine
DX: M54.9 Dorsalgia, unspecified (principal); N39.0 Urinary tract infection, site not specified; K83.8 Other specified diseases of biliary tract; E07.9 Disorder of thyroid, unspecified; I10 Essential (primary) hypertension; I20.9 Angina pectoris, unspecified; J44.9 Chronic obstructive pulmonary disease, unspecified

== ENCOUNTER 2019-10-10 14:53 | Inpatient (IN) | payer MEDICARE, BC ==
[~2019-10-10] VITALS: Ht 162.6 cm; Wt 84.4 kg
[~2019-10-10 14:53] MED LIST changes: +LEVOFLOXACIN500 MG PO
[2019-10-10 15:23] LABS: BASOPHILS 0.2 % (0-2); EOSINOPHILS 0.8 % (0-7); HEMATOCRIT 33.5 % (36.0-48.0); HEMOGLOBIN 10.8 g/dL (12-16); IMMATURE GRANULOCYTES 0.2 % (0-5); LYMPHOCYTES 15.7 % (15-50); MCH 29.3 pg (26.0-34.0); MCHC 32.2 g/dL (31.0-37.0); MEAN PLATELET VOLUME 8.8 fL (7.4-10.4); MONOCYTES 7.7 % (2-11); NEUTROPHILS 75.4 % (40-80); RBC 3.68 10x6/uL (4.00-5.40); RDW 13.4 % (11.5-14.5); WBC 4.8 10x3/uL (4.8-10.8)
[2019-10-10 15:27] LABS: PLATELET COUNT 184 10x3/uL (130-400)
[2019-10-10 15:31] LABS: BILIRUBIN NEGATIVE (NEGATIVE); GLUCOSE NEGATIVE (NEGATIVE); KETONE MODERATE mg/dL (NEGATIVE); NITRITE NEGATIVE (NEGATIVE); UROBILINOGEN NORMAL (NORMAL)
[2019-10-10 15:34] LABS: AMORPHOUS SEDIMENT <1+ /lpf (NONE SEEN); BACTERIA MODERATE /hpf (NEGATIVE); HYALINE CAST 0-5 /lpf (NONE SEEN); RED CELLS - URINE 0-5 /hpf (0-5)
[2019-10-10 15:39] LABS: CALC OSMOLALITY 274 mosm/kg (275-300); CALCIUM 8.7 mg/dL (8.5-10.1); CARBON DIOXIDE 31.6 mmol/L (21.0-32.0); CHLORIDE - SERUM 100 mmol/L (98-107); CREATININE - SERUM 0.8 mg/dL (0.6-1.3); GLUCOSE 98 mg/dL (74-106); POTASSIUM - SERUM 3.9 mmol/L (3.5-5.1); SODIUM 138 mmol/L (136-145); UREA NITROGEN 9 mg/dL (7-18); eGFR NON AFRICAN AMERICAN 75 mL/min (90-120)
[2019-10-10 15:52] LABS: ALBUMIN 3.1 g/dL (3.4-5.0); ALKALINE PHOSPHATASE 73 U/L (30-120); ALT (SGPT) 16 U/L (10-68); BILIRUBIN - TOTAL 0.41 mg/dL (0.2-1.3); CKMB 6.9 U/L (0.0-3.6); CREATINE KINASE 302 UL (21-215); PROTEIN - SERUM 8.2 g/dL (6.4-8.2); TROPONIN-I 0.031 ng/mL (0.000-0.060)
--- NOTE | 2019-10-10 16:05 | NUR ---
PT RESTING IN BED WITH EYES CLOSED. NO NEEDS AT THIS TIME. WILL MONITOR FOR CHANGES.
[2019-10-10 16:36] VITALS: BP 162/73
--- NOTE | 2019-10-10 17:10 | NUR ---
PROVIDED PT WITH SANDWHICH AND ICE WATER AT THIS TIME.
[2019-10-10 22:08] VITALS: BP 143/62
[2019-10-11] VITALS (7 sets, daily range): BP systolic 95–167; BP diastolic 59–72; BMI 32.0
[2019-10-11 05:29] LABS: BASOPHILS 0.2 % (0-2); EOSINOPHILS 2.5 % (0-7); HEMATOCRIT 32.6 % (36.0-48.0); HEMOGLOBIN 10.5 g/dL (12-16); LYMPHOCYTES 24.8 % (15-50); MCH 28.9 pg (26.0-34.0); MCHC 32.2 g/dL (31.0-37.0); MCV 89.8 fL (80.0-100.0); MONOCYTES 8.8 % (2-11); NEUTROPHILS 63.7 % (40-80); PLATELET COUNT 202 10x3/uL (130-400); RBC 3.63 10x6/uL (4.00-5.40); RDW 13.3 % (11.5-14.5); WBC 4.1 10x3/uL (4.8-10.8)
[2019-10-11 05:52] LABS: ALBUMIN 2.7 g/dL (3.4-5.0); ALKALINE PHOSPHATASE 67 U/L (30-120); CALC OSMOLALITY 271 mosm/kg (275-300); CALCIUM 8.4 mg/dL (8.5-10.1); CHLORIDE - SERUM 101 mmol/L (98-107); CREATININE - SERUM 0.8 mg/dL (0.6-1.3); GLUCOSE 92 mg/dL (74-106); SODIUM 137 mmol/L (136-145); UREA NITROGEN 8 mg/dL (7-18); eGFR NON AFRICAN AMERICAN 75 mL/min (90-120)
[2019-10-11 06:03] LABS: ALT (SGPT) 0 U/L (10-68); POTASSIUM - SERUM 3.3 mmol/L (3.5-5.1)
[2019-10-12] VITALS: BP 175/85
[2019-10-12 04:00] VITALS: BP 186/91
[2019-10-12 05:52] LABS: BASOPHILS 0.2 % (0-2); EOSINOPHILS 1.1 % (0-7); HEMATOCRIT 34.3 % (36.0-48.0); HEMOGLOBIN 11.4 g/dL (12-16); LYMPHOCYTES 20.7 % (15-50); MCH 29.3 pg (26.0-34.0); MCHC 33.2 g/dL (31.0-37.0); MCV 88.2 fL (80.0-100.0); MEAN PLATELET VOLUME 9.2 fL (7.4-10.4); MONOCYTES 7.8 % (2-11); NEUTROPHILS 70.2 % (40-80); PLATELET COUNT 220 10x3/uL (130-400); RBC 3.89 10x6/uL (4.00-5.40); RDW 13.4 % (11.5-14.5)
[2019-10-12 06:27] LABS: ALBUMIN 2.9 g/dL (3.4-5.0); ALKALINE PHOSPHATASE 70 U/L (30-120); BILIRUBIN - TOTAL 0.36 mg/dL (0.2-1.3); CALC OSMOLALITY 263 mosm/kg (275-300); CALCIUM 8.3 mg/dL (8.5-10.1); CARBON DIOXIDE 32.4 mmol/L (21.0-32.0); CHLORIDE - SERUM 96 mmol/L (98-107); CREATININE - SERUM 0.8 mg/dL (0.6-1.3); GLUCOSE 113 mg/dL (74-106); MAGNESIUM - SERUM 1.6 mg/dL (1.8-2.4); PHOSPHOROUS 3.9 mg/dL (2.5-4.9); POTASSIUM - SERUM 3.5 mmol/L (3.5-5.1); PROTEIN - SERUM 7.9 g/dL (6.4-8.2); SODIUM 132 mmol/L (136-145); UREA NITROGEN 6 mg/dL (7-18); eGFR NON AFRICAN AMERICAN 75 mL/min (90-120)
[2019-10-12 06:31] LABS: WBC 5.4 10x3/uL (4.8-10.8)
[2019-10-12 06:34] LABS: ALT (SGPT) 17 U/L (10-68)
--- NOTE | 2019-10-12 07:00 | NUR ---
LYING IN BED,WITHOUT DISTRESS.CALL LIGHT IN REACH
[2019-10-12 08:39] VITALS: BP 180/87
--- NOTE | 2019-10-12 09:00 | NUR ---
ASSESSMENT PER FLOW SHEET. PATIENT IS WITHOUT DISTRESS.MONITOR FOR NEEDS. AT BEDSIDE.
[2019-10-12 12:53] VITALS: BP 149/82
[2019-10-12 13:52] VITALS: Ht 162.6 cm; Wt 84.4 kg
[2019-10-12 16:01] VITALS: BP 140/74
--- NOTE | 2019-10-12 19:32 | NUR ---
PT RESTING IN BED WITH EYES OPEN, FAMILY AT THE BEDSIDE. CURRENTLY RCVING 2 1/2 L VIA NC. IV LOCATED TO RIGHT HAND NOTICEABLY SWOLLEN, DC`D IV WITH CATHETER INTACT WILL RESITE FORD. NO S/S OF DISTRESS AT THIS TIME, DENIES CURRENT NEEDS, WILL CONT TO MONITOR.
[2019-10-12 20:00] VITALS: BP 121/64
--- NOTE | 2019-10-12 21:53 | NUR ---
1/2NS STARTED BACK AT 75ML/HR. WILL CONT TO MONITOR.
--- NOTE | 2019-10-12 21:53 | NUR ---
22G IV STARTED IN LEFT WRIST, SL.
[2019-10-13] VITALS: BP 118/68
[2019-10-13 04:00] VITALS: BP 151/69
[2019-10-13 04:28] LABS: BASOPHILS 0.2 % (0-2); EOSINOPHILS 1.4 % (0-7); HEMATOCRIT 35.8 % (36.0-48.0); HEMOGLOBIN 11.9 g/dL (12-16); IMMATURE GRANULOCYTES 1.1 % (0-5); LYMPHOCYTES 20.6 % (15-50); MCH 29.2 pg (26.0-34.0); MCHC 33.2 g/dL (31.0-37.0); MEAN PLATELET VOLUME 9.7 fL (7.4-10.4); MONOCYTES 7.4 % (2-11); NEUTROPHILS 69.3 % (40-80); PLATELET COUNT 217 10x3/uL (130-400); RBC 4.07 10x6/uL (4.00-5.40); RDW 13.4 % (11.5-14.5); WBC 5.7 10x3/uL (4.8-10.8)
[2019-10-13 04:56] LABS: ALBUMIN 2.7 g/dL (3.4-5.0); ALKALINE PHOSPHATASE 67 U/L (30-120); ALT (SGPT) 15 U/L (10-68); BILIRUBIN - TOTAL 0.39 mg/dL (0.2-1.3); CALCIUM 8.9 mg/dL (8.5-10.1); CHLORIDE - SERUM 97 mmol/L (98-107); CREATININE - SERUM 0.7 mg/dL (0.6-1.3); GLUCOSE 118 mg/dL (74-106); MAGNESIUM - SERUM 1.9 mg/dL (1.8-2.4); PHOSPHOROUS 3.9 mg/dL (2.5-4.9); POTASSIUM - SERUM 3.7 mmol/L (3.5-5.1); PROTEIN - SERUM 8.5 g/dL (6.4-8.2); SODIUM 134 mmol/L (136-145); eGFR NON AFRICAN AMERICAN 87 mL/min (90-120)
[2019-10-13 05:08] LABS: CALC OSMOLALITY 267 mosm/kg (275-300); UREA NITROGEN 10 mg/dL (7-18)
[2019-10-13 08:41] VITALS: BP 156/73
[2019-10-13 13:03] VITALS: BP 132/90
--- NOTE | 2019-10-13 15:35 | NUR ---
HIGH RISK OF IMPAIRED SKIN INTEGRITY -TURN/REPOSITION Q 2 HOURS (REPOSITION HOURLY IF UP IN CHAIR) -FLOAT HEELS -PERSONAL CARE DAILY AND NEEDED. APPLY CALMOSEPTINE IF REDNESS IS NOTED DUE TO INCONTINENCE/MOISTURE -DOCUMENT SKIN ASSESSMENT Q SHIFT -CONSULT WOUND CARE IF PRESSURE INJURIES ARE PRESENT AND/OR FOR NON-BLANCHABLE REDNESS OVER BONY PROMINENCES
[2019-10-13 18:02] VITALS: BP 136/68
--- NOTE | 2019-10-13 18:03 | NUR ---
OT NOTE: PT STATED BACK PAIN 04/21. CABRALES REPORTED TO NURSING. PT COMPLETED BUE AROM EXS WHILE SUPINE IN BED. PT COMPLETED HAIR GROOMING WITH SET UP. [phone] THANK YOU,SAMRA RICHARDS
[2019-10-14 04:00] VITALS: BP 145/71
[2019-10-14 06:36] LABS: BASOPHILS 0.8 % (0-2); EOSINOPHILS 3.7 % (0-7); HEMATOCRIT 34.3 % (36.0-48.0); HEMOGLOBIN 11.2 g/dL (12-16); LYMPHOCYTES 21.5 % (15-50); MCH 29.1 pg (26.0-34.0); MCHC 32.7 g/dL (31.0-37.0); MCV 89.1 fL (80.0-100.0); MEAN PLATELET VOLUME 9.5 fL (7.4-10.4); MONOCYTES 10.8 % (2-11); NEUTROPHILS 63.2 % (40-80); PLATELET COUNT 211 10x3/uL (130-400); RBC 3.85 10x6/uL (4.00-5.40); RDW 13.5 % (11.5-14.5)
[2019-10-14 06:44] LABS: WBC 3.5 10x3/uL (4.8-10.8)
[2019-10-14 06:59] LABS: ALBUMIN 2.6 g/dL (3.4-5.0); ALKALINE PHOSPHATASE 65 U/L (30-120); ALT (SGPT) 15 U/L (10-68); BILIRUBIN - TOTAL 0.32 mg/dL (0.2-1.3); CALCIUM 8.6 mg/dL (8.5-10.1); CARBON DIOXIDE 34.5 mmol/L (21.0-32.0); CHLORIDE - SERUM 100 mmol/L (98-107); CREATININE - SERUM 0.7 mg/dL (0.6-1.3); GLUCOSE 99 mg/dL (74-106); MAGNESIUM - SERUM 2.1 mg/dL (1.8-2.4); POTASSIUM - SERUM 4.2 mmol/L (3.5-5.1); PROTEIN - SERUM 7.6 g/dL (6.4-8.2); SODIUM 137 mmol/L (136-145); eGFR NON AFRICAN AMERICAN 87 mL/min (90-120)
[2019-10-14 07:10] LABS: CALC OSMOLALITY 271 mosm/kg (275-300)
[2019-10-14 07:27] LABS: UREA NITROGEN 8 mg/dL (7-18)
--- NOTE | 2019-10-14 07:30 | NUR ---
REC'D IN BED AWAKE AND ALERT. RESP EVEN AND UNLABORED WITH NO DISTRES NOTED. CAN EXPRESS AND WANTS. NO C/O NOTED OR VOICED. ASSESSMENT COMPLETED. C/L IN REACH AT BEDSIDE.
--- NOTE | 2019-10-14 08:54 | MORECARE ---
CASE MANAGEMENT DISCHARGE SUMMARY PATIENT: HUMPHREY SCOTT UNIT: [id number] ADM DATE: 10/10/19 AGE: 69 : 48 SEX: F ROOM/BED: D.2228 AUTHOR: ANISA PINEDA PHYSICIAN: REFERRING PHYSICIAN: DARCIE WILCOX MD DATE OF SERVICE: 10/14/19 Discharge Plan Patient Name: HUMPHREY SCOTT Facility: [facility]:[place] : 1950 Planned Disposition: Inpatient Rehab Anticipated Discharge Date: Discharge Date: Expected LOS: Initial Reviewer: [email or web address] Initial Review Date: 10/14/2019 Generated: 10/14/19 9:54 am DCPIA - Discharge Planning Initial Assessment Updated by [email or web address]: Luisana Sapp on 10/14/19 8:53 am * Is the patient Alert and Oriented? Yes * How many steps to enter\exit or inside your home? 0/0 * PCP Dr. Martins * Pharmacy [facility] [address] * Preadmission Environment Home with Family * ADLs Partial Dependent * Partial ADLs (Assistance needed) Ambulation Bathing * Equipment Cane Nebulizer Other Oxygen Shower Chair Walker * Other Equipment Portable oxygen * List name and contact numbers for known caregivers / representatives who currently or will assist patient after discharge: Colton Varela ulemqo - [phone] * Verbal permission to speak to the caregivers and representatives has been obtained from the patient. Yes * Community resources currently utilized None * Please name any agencies selected above. [employer] is oxygen supply [employer] * Additional services required to return to the preadmission environment? Yes * Can the patient safely return to the preadmission environment? Yes * Has this patient been hospitalized within the prior 30 days at any hospital? No Patient Name: HUMPHREY SCOTT Page [phone] at 0854 All edits/amendments must be made on the electronic document DICTATION DATE: 10/14/19 0854 INDUSTRIAL HEALTH AND SAFETY PROFESSOR: CELE 10/14/19 0854 RPT#: [id number] DC DATE: STATUS: ADM IN [facility] [address] [place] [address] END OF REPORT
--- NOTE | 2019-10-14 09:01 | MORECARE ---
CASE MANAGEMENT DISCHARGE SUMMARY PATIENT: HUMPHREY SCOTT UNIT: [id number] ADM DATE: 10/10/19 AGE: 69 : 48 SEX: F ROOM/BED: D.2228 AUTHOR: EDWIN,DOC PHYSICIAN: REFERRING PHYSICIAN: DARCIE WILCOX MD DATE OF SERVICE: 10/14/19 Discharge Plan Patient Name: HUMPHREY SCOTT Facility: [facility]:[place] : 1950 Planned Disposition: Inpatient Rehab Anticipated Discharge Date: Discharge Date: Expected LOS: Initial Reviewer: [email or web address] Initial Review Date: 10/14/2019 Generated: 10/14/19 10:01 am Comments DCP- Discharge Planning Updated by [email or web address]: Luisana Sapp on 10/14/19 7:[address] Patient Name: HUMPHREY SCOTT Admission Status: ER Accout number: [id number] Admission Date: 10-10-2019 : 1950 Admission Diagnosis: Attending: DARCIE WILCOX Current LOS: 4 Anticipated DC Date: Planned Disposition: Inpatient Rehab Primary Insurance: MEDICARE A & B Discharge Planning Comments: CM met with patient to complete initial dc planning assessment. CM educated patient on the CM role and verbal consent given by patient to complete assessment. Patient lives at home with her spouse. At discharge patient plans to return and feels this is a safe discharge. CM verified address and phone number on face sheet. CM discussed availability of home health, rehab services, and medical equipment. Patient states she needs rehab. [facility]O for [facility] inpatient rehab and [facility] signed. Rehab prescreen ordererd. CM will continue to follow and will assist as needed with dc plans/needs. Head Paper Tester: Luisana Sapp DCPIA - Discharge Planning Initial Assessment Updated by [email or web address]: Luisana Sapp on 10/14/19 8:53 am * Is the patient Alert and Oriented? Yes * How many steps to enter\exit or inside your home? 0/0 * PCP Dr. Martins * Pharmacy [facility] [address] * Preadmission Environment Home with Family * ADLs Partial Dependent * Partial ADLs (Assistance needed) Ambulation Bathing * Equipment Cane Nebulizer Other Oxygen Shower Chair Walker * Other Equipment Portable oxygen * List name and contact numbers for known caregivers / representatives who currently or will assist patient after discharge: Colton lovett - [phone] * Verbal permission to speak to the caregivers and representatives has been obtained from the patient. Yes * Community resources currently utilized None * Please name any agencies selected above. [employer] is oxygen supply company * Additional services required to return to the preadmission environment? Yes * Can the patient safely return to the preadmission environment? Yes * Has this patient been hospitalized within the prior 30 days at any hospital? No Coverage Notice Reviewer: [id number] Avery Sapp Notice Issued Date-Time: 10/14/2019 8:56 Notice Type: Patient Choice Letter Notice Delivered To: Patient Relationship to Patient: Self Gis Database Administrator Name: Delivery Method: HAND - Hand Delivered Estelita Days: Prior Verbal Notification: Recipient Understood Notice: Yes Recipient Signature: Yes Med Rec Note Co-signed by Attending: Coverage Notice Comment: [facility] AND [facility] Last DP export: 10/14/19 7:54 am Patient Name: HUMPHREY SCOTT Page [phone] at 0901 All edits/amendments must be made on the electronic document DICTATION DATE: 10/14/19900 UNDERGROUND MINE MACHINERY MECHANIC: CELE 10/14/19900 RPT#: [id number] DC DATE: STATUS: ADM IN [facility] [address] [place] [address] END OF REPORT
[2019-10-14 09:18] VITALS: BP 163/84
--- NOTE | 2019-10-14 10:12 | NUR ---
C/O BACK PAIN RATING 8/10 ON PAIN SCALE WAS MEDICATED WITH MORPHINE PER ORDERS.C/L IN REACH AT BEDSIDE
[2019-10-14] MEDS ORDERED: NORVASC10 MG PO (11:41)
[2019-10-14] MEDS ORDERED: MIRALAX17 GM PO (11:42)
[2019-10-14] MEDS ORDERED: SINGULAIR10 MG PO (11:42)
[2019-10-14] MEDS ORDERED: ROCEPHIN 1 GM/D51 G1 IV (12:04)
--- NOTE | 2019-10-14 14:11 | MORECARE ---
CASE MANAGEMENT DISCHARGE SUMMARY PATIENT: HUMPHREY SCOTT UNIT: [id number] ADM DATE: 10/10/19 AGE: 69 : 48 SEX: F ROOM/BED: D.2228 AUTHOR: EDWINDOC PHYSICIAN: REFERRING PHYSICIAN: DARCIE WILCOX MD DATE OF SERVICE: 10/14/19 Discharge Plan Patient Name: HUMPHREY SCOTT Facility: [facility]:[place] : 1950 Planned Disposition: Inpatient Rehab Anticipated Discharge Date: Discharge Date: Expected LOS: Initial Reviewer: [email or web address] Initial Review Date: 10/14/2019 Generated: 10/14/19 3:10 pm Comments DCP- Discharge Planning Updated by [email or web address]: Luisana Sapp on 10/14/19 12:[address] Patient Name: HUMPHREY SCOTT Encounter No: [id number] : 1950 Primary Insurance: MEDICARE A & B Anticipated DC Date: Planned Disposition: Inpatient Rehab External Planned Provider: : DCP follow-up note: Patient and family in agreement with discharge plan. No changes to plan. She is discharging today to inpatient rehab at [facility]. at bedside. Case management will follow and assist as needed. Luisana Sapp DCP- Discharge Planning Updated by [id number]: Luisana Sapp on 10/14/19 7:[address] Patient Name: HUMPHREY SCOTT Admission Status: ER Accout number: [id number] Admission Date: 10-10-2019 : 1950 Admission Diagnosis: Attending: DARCIE WILCOX Current LOS: 4 Anticipated DC Date: Planned Disposition: Inpatient Rehab Primary Insurance: MEDICARE A & B Discharge Planning Comments: CM met with patient to complete initial dc planning assessment. CM educated patient on the CM role and verbal consent given by patient to complete assessment. Patient lives at home with her spouse. At discharge patient plans to return and feels this is a safe discharge. CM verified address and phone number on face sheet. CM discussed availability of home health, rehab services, and medical equipment. Patient states she needs rehab. PIPO for [facility] inpatient rehab and [facility] signed. Rehab prescreen ordererd. CM will continue to follow and will assist as needed with dc plans/needs. Internal Audit Consultant: Luisana Sapp DCPIA - Discharge Planning Initial Assessment Updated by [email or web address]: Luisana Sapp on 10/14/19 8:53 am * Is the patient Alert and Oriented? Yes * How many steps to enter\exit or inside your home? 0/0 * PCP Dr. Martins * Pharmacy [facility] [address] * Preadmission Environment Home with Family * ADLs Partial Dependent * Partial ADLs (Assistance needed) Ambulation Bathing * Equipment Cane Nebulizer Other Oxygen Shower Chair Walker * Other Equipment Portable oxygen * List name and contact numbers for known caregivers / representatives who currently or will assist patient after discharge: Colton - bqwtfi - [phone] * Verbal permission to speak to the caregivers and representatives has been obtained from the patient. Yes * Community resources currently utilized None * Please name any agencies selected above. [employer] is oxygen supply company * Additional services required to return to the preadmission environment? Yes * Can the patient safely return to the preadmission environment? Yes * Has this patient been hospitalized within the prior 30 days at any hospital? No Coverage Notice Reviewer: [email or web address] Avery Sapp Notice Issued Date-Time: 10/14/2019 8:56 Notice Type: Patient Choice Letter Notice Delivered To: Patient Relationship to Patient: Self Car Record Clerk Name: Delivery Method: HAND - Hand Delivered Estelita Days: Prior Verbal Notification: Recipient Understood Notice: Yes Recipient Signature: Yes Med Rec Note Co-signed by Attending: Coverage Notice Comment: [facility] REHAB AND [facility] Reviewer: [email or web address] Avery Sapp Notice Issued Date-Time: 10/14/2019 13:49 Notice Type: IM Discharge Notice Notice Delivered To: Patient Relationship to Patient: Self Car Record Clerk Name: Delivery Method: HAND - Hand Delivered Estelita Days: Prior Verbal Notification: Recipient Understood Notice: Yes Recipient Signature: Yes Med Rec Note Co-signed by Attending: Coverage Notice Comment: IMM explained, signed, given, copy placed in MR Last DP export: 10/14/19 8:01 am Patient Name: HUMPHREY SCOTT Page [phone] at 1411 All edits/amendments must be made on the electronic document DICTATION DATE: 10/14/191409 LEATHER STRIPPING MACHINE OPERATOR: CELE 10/14/191409 RPT#: [id number] DC DATE: STATUS: ADM IN [facility] [address] [place] [address] END OF REPORT
[2019-10-14] MEDS ORDERED: FENTANYL ID (14:26)
--- NOTE | 2019-10-14 17:38 | NUR ---
I have reviewed this patient and I concur with the Shift Assessment completed by the Licensed Practical Nurse today this shift.
== END 2019-10-14 18:47 | DRG 689 ==
LOC: D.ER 14:53 → D.MS 17:20 → D.SDCHOLD 10-14 13:26 → D.MS 10-14 13:31
PROVIDERS: Emergency Medicine; ADMIT Internal Medicine Nephrology; ATTEND Internal Medicine Nephrology
DX: N39.0 Urinary tract infection, site not specified (principal); R53.2 Functional quadriplegia; G93.41 Metabolic encephalopathy; J96.21 Acute and chronic respiratory failure with hypoxia; I10 Essential (primary) hypertension; J43.9 Emphysema, unspecified; E03.9 Hypothyroidism, unspecified; M81.0 Age-related osteoporosis without current pathological fracture; M79.7 Fibromyalgia; M54.9 Dorsalgia, unspecified; E86.0 Dehydration; K59.00 Constipation, unspecified; D64.9 Anemia, unspecified; M32.9 Systemic lupus erythematosus, unspecified; F41.8 Other specified anxiety disorders; E31.20 Multiple endocrine neoplasia [MEN] syndrome, unspecified

== ENCOUNTER 2019-10-14 15:07 | Inpatient (IN) | payer MEDICARE, BC ==
[~2019-10-14] VITALS: Ht 162.6 cm; Wt 84.4 kg
--- NOTE | ~2019-10-14 | RHP ---
PATIENT: HUMPHREY SCOTT MEDICAL RECORD: [id number] ACCOUNT: [id number] LOCATION:[facility] : 46 ADMISSION DATE: 10/14/19 REHABILITATION HISTORY AND PHYSICAL EXAMINATION POST ADMISSION PHYSICIAN EXAMINATION ADMITTING DIAGNOSIS: Metabolic encephalopathy. HISTORY OF PRESENT ILLNESS: The patient is a 69-year-old female patient who sees Dr. Martins, who was brought in via EMS to the ED secondary to weakness and back pain. The patient has been seen at walk-in clinic and treated for UTI. She was also seen in the Emergency Department on 10/08/2019. CT was performed at that time to rule out any type of renal calculi and she was discharged on oral antibiotics. Spouse stated that the patient became so weak she could not walk and was not eating and hardly down any liquids. She has a history of hypertension and chronic angina, COPD, emphysema, home O2 dependence, history of parathyroid cancer and subsequent hypothyroidism, fibromyalgia, depression and anxiety. The patient had an MRI of the abdomen, which showed moderate extrahepatic and [id number] intrahepatic biliary ductal dilatation. She had no obvious pancreatic masses or choledocholithiasis. GI consult was done. The patient has been to [facility] for multiple times to evaluate her biliary system. She has had ERCPs, biopsies of her ampullary orifices, which has been done. All have been benign. She has been seen and followed by PT, OT and speech therapy during her stay. She needs to be monitor closely for intake and output with clearance of her UTI. She has had acute confusion. She is in need of supplemental O2. She is on electrolyte protocol, pain control, monitoring her lab values, has proximal muscle weakness, balance deficits, decreased activity tolerance, decreased range of motion, decreased strength, gait disturbance, limited safety awareness and risk for falls. These are all barriers to her discharge home at this time. Lives at home with her spouse and has been completely independent with ADLs and mobility in the past, using a rolling walker. Currently, set up for mod assist for ADLs, mod assist for mobility. She and her family would like to return home at her prior level of functioning or better. 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 PAST MEDICAL HISTORY: Significant for parathyroid cancer, COPD, emphysema, asthma. She has got a history of parathyroid cancer, osteoporosis, fibromyalgia, lupus. She has had depression and anxiety. PAST SURGICAL HISTORY: Includes gallbladder surgery, hysterectomy, parathyroid cancer removal. She has had a tumor removed from her mouth, breast biopsy times 4 and hemorrhoidectomy. ALLERGIES: IV DYE, IODINE, PENICILLIN AND SULFA. CURRENT MEDICATIONS: Include Zoloft 100 mg daily, Norvasc 10 mg daily, Protonix 40 mg b.i.d., Singulair 10 mg at bedtime. She is on an electrolyte protocol at this time. She is on a Duragesic patch 25 mcg every 3 days, vitamin D 25,000 units every 14 days, Rocephin 1 gram every 24 hours and Ventolin updrafts. HISTORY AND PHYSICAL [id number] HUMPHREY SCOTT HABITS: No alcohol or tobacco use. FAMILY HISTORY: Noncontributory. SOCIAL HISTORY: The patient hopes to return back home and get back to her prior level of functioning. REVIEW OF SYSTEMS: GENERAL: Does complain of weakness and fatigue. HEENT: Denies cold, cough, or congestion. CARDIOVASCULAR: Denies chest pain. PHYSICAL EXAMINATION: VITAL SIGNS: Stable. She is afebrile. Her blood pressure is 151/79 and pulse ox is 98%. GENERAL: A somewhat obese female, in no distress upon exam. HEENT: Normocephalic and atraumatic. Mucosa moist. NECK: Supple. No lymphadenopathy. LUNGS: Clear in upper [place]. No wheezing, rhonchi or rales. HEART: Regular rate and rhythm. No murmurs, rubs or gallops. ABDOMEN: Soft, benign, and nondistended. Positive bowel sounds times 4. EXTREMITIES: No clubbing, cyanosis or edema. NEUROLOGIC: She does have 3/5 muscular strength in her lower extremities. LABORATORY DATA: White count is 4.9, H&H 12 and 38 and platelet count was noted to be 234. Her sodium is 136, potassium 4.2, BUN and creatinine of 13 and 0.8, and blood sugar is noted to be 136. ASSESSMENT: A 69-year-old female patient admitted to rehab with a working diagnosis of acute metabolic encephalopathy. The patient has potential to make improvement. We instituted the following multidisciplinary therapies including, but not limited to physical, occupational, respiratory, speech, nutritional services, prosthetics and orthotics. Given her complex medical conditions and risks for more complications, rehabilitation services cannot be provided at a low level of care such as assisted facility. PLAN: 1. Admit to [facility] for intensive inpatient therapy to include the following disciplines: A. Physical therapy to improve gait, all transfer skills and bed mobility to a modified independent level. C. Case management to assist with discharge planning and placement options. D. Nutrition to assist with nutritional needs. E. Rehabilitation nursing to assist in monitoring the patient's underlying medical conditions and to assist with any type of bowel or bladder management. 2. The patient's current medication and medical care will be continued. 3. The patient will be placed on standard fall precautions. 4. The patient's estimated length of stay is approximately 7-10 days. 5. We will discuss the patient during care team staff meeting this week. I am going to see again in the a.m. We will watch her lab values closely. Continue on home medications where appropriate and I am going to see again. TRANSINT:[id number] Voice Confirmation ID: [id number] DOCUMENT ID: [id number] HISTORY AND PHYSICAL [id number] HUMPHREY SCOTT notes whether there has been none or any medical/functional change since admission: - No change since pre-admission screen. TYLOR attests patient continues to be appropriate for IRF: - Continues to be appropriate. KAMINI ROBLEDO MD CC: [id number] DICTATION DATE: 10/15/19 1059 CARBURETOR MECHANIC: 10/15/19 1217 ADM IN [facility] [address] [place] [address]
[~2019-10-14 15:07] MED LIST changes: +FENTANYL ID; +MIRALAX17 GM PO; +NORVASC10 MG PO; +ROCEPHIN 1 GM/D51 G1 IV
--- NOTE | 2019-10-14 19:00 | NUR ---
GREETED PATIENT AND INTRODUCED MYSELF HER NURSE. ORIENTATED PATIENT TO UNIT AND STAFF. RESPIRATIONS ELEVATED TO 26 AND RESPIRATORY CONTACTED TO GIVE PRN BREATHING TREATMENT. O2 AT 2L IN USE. DENIES ANY FURTHER NEEDS. CALL LIGHT IN REACH.
[2019-10-14 21:20] VITALS: BP 151/79
[2019-10-14 22:36] VITALS: BP 157/79; BMI 32.0
--- NOTE | 2019-10-15 01:20 | NUR ---
PT. RESTING QUIETLY WITH EYES CLOSED. RESPIRATIONS EVEN. NO S/S OF DISTRESS. O2 AT 2L IN USE VIA NC. CALL LIGHT IN REACH.
--- NOTE | 2019-10-15 04:06 | NUR ---
PT. RESTING QUIETLY WITH EYES CLOSED. RESPIRATIONS EVEN. NO S/S OF DISTRESS. CALL LIGHT IN REACH.
--- NOTE | 2019-10-15 08:01 | NUR ---
PT AM MEDS ADMINISTERED. PT DENIES NEEDS. WCTM.
[2019-10-15 08:23] LABS: BASOPHILS 0.4 % (0-2); EOSINOPHILS 1.6 % (0-7); HEMATOCRIT 38.9 % (36.0-48.0); HEMOGLOBIN 12.7 g/dL (12-16); IMMATURE GRANULOCYTES 0.2 % (0-5); LYMPHOCYTES 13.6 % (15-50); MCH 29.1 pg (26.0-34.0); MCHC 32.6 g/dL (31.0-37.0); MEAN PLATELET VOLUME 9.5 fL (7.4-10.4); MONOCYTES 8.6 % (2-11); NEUTROPHILS 75.6 % (40-80); PLATELET COUNT 234 10x3/uL (130-400); RBC 4.37 10x6/uL (4.00-5.40); RDW 13.2 % (11.5-14.5)
[2019-10-15 08:30] LABS: WBC 4.9 10x3/uL (4.8-10.8)
[2019-10-15 08:41] LABS: CALC OSMOLALITY 273 mosm/kg (275-300); CALCIUM 9.5 mg/dL (8.5-10.1); CARBON DIOXIDE 33.3 mmol/L (21.0-32.0); CHLORIDE - SERUM 98 mmol/L (98-107); CREATININE - SERUM 0.8 mg/dL (0.6-1.3); GLUCOSE 136 mg/dL (74-106); POTASSIUM - SERUM 4.2 mmol/L (3.5-5.1); SODIUM 136 mmol/L (136-145); eGFR NON AFRICAN AMERICAN 75 mL/min (90-120)
[2019-10-15 08:42] LABS: UREA NITROGEN 13 mg/dL (7-18)
[2019-10-15 09:21] VITALS: BP 185/95
[2019-10-15 13:37] VITALS: Ht 162.6 cm; Wt 84.4 kg
--- NOTE | 2019-10-15 17:57 | NUR ---
PT REFUSING TO EAT STATING SHE CANT SIT UP D/T BACK PAIN. PAIN MEDICATION PROVIDED. WCTM.
--- NOTE | 2019-10-15 18:30 | NUR ---
GREETED PATIENT AND INTRODUCED MYSELF HER NURSE. PATIENT IS LAYING IN BED RESTING AT THIS TIME. FAMILY MEMBER AT BEDSIDE. RESPIRAITONS EVEN. NO S/S OF DISTRESS. O2 AT 2L VIA NC. DENIES ANY NEEDS AT THIS TIME. CALL LIGHT IN REACH.
[2019-10-15 22:57] VITALS: BP 161/80
--- NOTE | 2019-10-16 00:31 | NUR ---
PT RESTING QUIETLY WITH EYES CLOSED. RESPIRATIONS EVEN. NO S/S OF DISTRESS. O2 AT 2L IN USE VIA NC. CALL LIGHT IN REACH
--- NOTE | 2019-10-16 03:32 | NUR ---
PT RESTING QUIETLY WITH EYES CLOSED. RESPIRATIONS EVEN. NO S/S OF DISTRESS. O2 AT 2L IN USE VIA NC. CALL LIGHT IN REACH.
[2019-10-16 07:46] LABS: BASOPHILS 0.6 % (0-2); EOSINOPHILS 1.7 % (0-7); HEMATOCRIT 37.6 % (36.0-48.0); HEMOGLOBIN 12.5 g/dL (12-16); MCH 29.4 pg (26.0-34.0); MCHC 33.2 g/dL (31.0-37.0); MCV 88.5 fL (80.0-100.0); MEAN PLATELET VOLUME 9.2 fL (7.4-10.4); MONOCYTES 10.5 % (2-11); NEUTROPHILS 60.2 % (40-80); PLATELET COUNT 249 10x3/uL (130-400); RBC 4.25 10x6/uL (4.00-5.40); RDW 13.5 % (11.5-14.5)
[2019-10-16 07:48] LABS: WBC 3.4 10x3/uL (4.8-10.8)
--- NOTE | 2019-10-16 08:00 | NUR ---
PATIENT IS ALERT/ORIENT. CALL LIGHT WITHIN REACH. VOICES NO NEEDS AT THIS TIME. WILL CONTINUE WITH PLAN OF CARE
[2019-10-16 08:07] LABS: CALC OSMOLALITY 272 mosm/kg (275-300); CALCIUM 8.8 mg/dL (8.5-10.1); CARBON DIOXIDE 34.2 mmol/L (21.0-32.0); CHLORIDE - SERUM 98 mmol/L (98-107); CREATININE - SERUM 0.8 mg/dL (0.6-1.3); GLUCOSE 104 mg/dL (74-106); POTASSIUM - SERUM 3.7 mmol/L (3.5-5.1); SODIUM 136 mmol/L (136-145); UREA NITROGEN 16 mg/dL (7-18); eGFR NON AFRICAN AMERICAN 75 mL/min (90-120)
[2019-10-16 09:52] VITALS: BP 163/77
--- NOTE | 2019-10-16 09:55 | NUR ---
PATIENT REQUESTED PRN PAIN MEDICATION FOR LOWER BACK AFTER WORKING WITH PHYSICAL THERAPIST IN REHAB
--- NOTE | 2019-10-16 14:20 | NUR ---
PATIENT HELPED INTO BATHROOM. STAND BY ASST WITH WHEELED WALKER
--- NOTE | 2019-10-16 19:48 | NUR ---
PT IS RESTING IN BED WITH EYES OPEN. ALERT AND ORIENTED X 3. DENIES ACUTE PAIN AT THIS TIME, BUT STATED SHE WAS NAUSIOUS, AND HAS BEEN OFF AND ON FOR 3 WEEKS. MEDICATED WITH ZOFRAN, PER OCT. O2 IS ON @ 2LPM PER NC. NO SOB NOTED. SR'S ARE UP X 2 IN BED. CALL LIGHT AND BEDSIDE TABLE ARE WITHIN EASY REACH. SPOUSE IS AT BEDSIDE.
--- NOTE | 2019-10-16 22:01 | NUR ---
PT RESTING IN BED WITH EYES OPEN. NO NEEDS VOICED.
--- NOTE | 2019-10-17 00:01 | NUR ---
RESTING IN BED WITH EYES CLOSED.
[2019-10-17 02:18] VITALS: BP 136/70
--- NOTE | 2019-10-17 02:18 | NUR ---
I have reviewed this patient and I concur with the Shift Assessment completed by the Licensed Practical Nurse today this shift.
--- NOTE | 2019-10-17 04:53 | NUR ---
RESTING IN BED WITH EYES CLOSED.
[2019-10-17 08:00] VITALS: BP 140/65
--- NOTE | 2019-10-17 08:00 | NUR ---
PATIENT IS ALERT/ORIENT. SITTING UP BY THE SIDE OF THE BED TO EAT BREAKFAST. CALL LIGHT WITHIN REACH. VOICES NO NEEDS AT THIS TIME. WILL CONTINUE WITH PLAN OF CARE
--- NOTE | 2019-10-17 11:00 | NUR ---
I have reviewed this patient and I concur with the Shift Assessment completed by the Licensed Practical Nurse today this shift.
--- NOTE | 2019-10-17 12:00 | NUR ---
I have reviewed this patient and I concur with the Shift Assessment completed by the Licensed Practical Nurse today this shift.
--- NOTE | 2019-10-17 13:44 | NUR ---
PRN PAIN MEDICATION GIVEN FOR LOWER BACK PAIN
--- NOTE | 2019-10-17 18:54 | NUR ---
GREETED PATIENT AND INTRODUCED MYSELF HER NURSE. PATIENT IS CURRENTLY LAYING IN BED RESTING AT THIS TIME. O2 AT 2L IN USE VIA NC. RESPIRATIONS EVEN. NO S/S OF DISTRESS. FAMILY MEMBER AT BEDSIDE VISITING. DENIES ANY NEEDS AT THIS TIME. CALL LIGHT IN REACH.
[2019-10-17 20:13] VITALS: BP 146/80
--- NOTE | 2019-10-18 03:25 | NUR ---
PT. RESTING QUIETLY WITH EYES CLOSED. RESPIRATIONS EVEN. NO S/S OF DISTRESS. O2 AT 2L IN USE VIA NC. CALL LIGHT IN REACH.
[2019-10-18 08:00] VITALS: BP 141/67
--- NOTE | 2019-10-18 08:30 | NUR ---
PT ASSISTED TO BR AND BACK TO BED. PT DENIES NEEDS. WCTM.
--- NOTE | 2019-10-18 10:04 | NUR ---
PT AM MEDS ADMINISTERED. PT DENIES NEEDS. WCTM.
--- NOTE | 2019-10-18 18:05 | NUR ---
GREETED PATIENT AND INTROUDCED MYSELF HER NURSE. PATIENT IS LAYING IN BED RESTING AT THIS TIME. O2 AT 2L IN USE VIA NC. RESPIRATIONS EVEN. NO S/S OF DISTRESS. CALL LIGHT IN REACH.
--- NOTE | 2019-10-18 18:18 | NUR ---
PT RESTING IN BED, DENIES NEEDS. WCTM.
[2019-10-18 19:41] VITALS: BP 148/58
--- NOTE | 2019-10-18 23:57 | NUR ---
PT RESTING QUIETLY WITH EYES CLOSED. RESPIRATIONS EVEN. NO S/S OF DISTRESS. O2 AT 2L IN USE VIA NC. CALL LIGHT IN REACH.
--- NOTE | 2019-10-19 03:40 | NUR ---
PT RESTING QUIETLY WITH EYES CLOSED. RESPIRATIONS EVEN. NO S/S OF DISTRESS. O2 AT 2L IN USE VIA NC. CALL LIGHT IN REACH.
[2019-10-19 06:58] LABS: BASOPHILS 0.1 % (0-2); HEMATOCRIT 36.8 % (36.0-48.0); IMMATURE GRANULOCYTES 0.2 % (0-5); LYMPHOCYTES 14.1 % (15-50); MCH 28.9 pg (26.0-34.0); MCHC 32.6 g/dL (31.0-37.0); MCV 88.7 fL (80.0-100.0); MEAN PLATELET VOLUME 9.5 fL (7.4-10.4); MONOCYTES 7.1 % (2-11); NEUTROPHILS 77.5 % (40-80); PLATELET COUNT 294 10x3/uL (130-400); RBC 4.15 10x6/uL (4.00-5.40); RDW 13.3 % (11.5-14.5); WBC 8.3 10x3/uL (4.8-10.8)
[2019-10-19 08:00] VITALS: BP 135/67
--- NOTE | 2019-10-19 08:00 | NUR ---
PT RESTING IN BED WITH EYES OPEN CALL LIGHT IN REACH WILL MONITER
[2019-10-19 08:46] LABS: CALC OSMOLALITY 275 mosm/kg (275-300); CALCIUM 8.7 mg/dL (8.5-10.1); CHLORIDE - SERUM 99 mmol/L (98-107); CREATININE - SERUM 0.8 mg/dL (0.6-1.3); GLUCOSE 111 mg/dL (74-106); POTASSIUM - SERUM 3.3 mmol/L (3.5-5.1); SODIUM 136 mmol/L (136-145); UREA NITROGEN 20 mg/dL (7-18); eGFR NON AFRICAN AMERICAN 75 mL/min (90-120)
--- NOTE | 2019-10-19 13:29 | NUR ---
Nutrition Follow-up: Diet: Cardiac PO intake: ~31% average; she reports that her appetite is "not good." states that she has been ordering PB&J and eating those. States that she half half of a cheesburger yesterday. She likes vanilla Ensure and has been drinking them at mealtimes. Last BM: 10/18/19. WT: 186# (10/15/19) Meds and labs reviewed. Recommend continue current diet. Encouraged PO intake. Will add vanilla Ensure with meals. RD following.
--- NOTE | 2019-10-19 16:42 | NUR ---
PT RESTING IN BED WITH EYES OPEN CALL LIGHT IN REACH WILL MONITER
[2019-10-19 19:00] VITALS: BP 131/64
--- NOTE | 2019-10-19 19:12 | NUR ---
GREETED PATIENT AND INTRODUCED MYSELF HER NURSE. PATIENT IS SITTING ON SIDE OF BED VISITING WITH FAMILY MEMBER AT THIS TIME. O2 AT 2L IN USE. RESPIRATIONS EVEN. NO S/S OF DISTRESS. DENIES ANY NEEDS AT THIS TIME. CALL LIGHT IN REACH.
--- NOTE | 2019-10-19 22:27 | NUR ---
DC'D PERIPHERAL IV PER PTS. REQUEST. PT. STATES " IT IS REALLY HURTING ME." CHECKED PTS. MAR AND PTS IV ANTIBIOTICS ARE COMPLETED.
--- NOTE | 2019-10-20 01:07 | NUR ---
PT RESTING QUIETLY WITH EYES CLOSED. RESPIRATIONS EVEN. NO S/S OF DISTRESS. O2 AT 2L IN USE VIA NC. CALL LIGHT IN REACH.
--- NOTE | 2019-10-20 03:51 | NUR ---
PT RESTING QUIETLY WITH EYES CLOSED. RESPIRATIONS EVEN. NO S/S OF DISTRESS. O2 A 2L IN USE VIA NC. CALL LIGHT IN REACH.
[2019-10-20 08:03] VITALS: BP 141/68
--- NOTE | 2019-10-20 09:28 | NUR ---
NOTIFIED OF PT CHANGE IN CONDITION.
--- NOTE | 2019-10-20 11:43 | NUR ---
PATIENT WAS ADMITTED TO REHAB FROM ACUTE FLOOR.HER PCP IS DR. RODRIGUEZ. DME AT HOME IS O2, SHOWER CHAIR, NEBULIZER WALKER AND A CANE. HER DISCHARGE PLANS WAS TO RETURN HOME WITH HER SPOUSE. PATIENT HAS DECLINED THIS AM AND A CODE WAS CALLED. SPOUSE NOTIFIED. PATIENT WITH NO PULSE OR RESP.FAMILY AT BEDSIDE.
--- NOTE | 2019-10-20 13:14 | NUR ---
0854 PT WAS IN BR AND BEGAN TO FEEL FAINT AND LIGHTHEADED. PHYSICAL THERAPY AND AID ASSISTED PT BACK INTO BED. PT SWEATING PROFUSELY. THIS NURSE NOTIFIED. 0858 PT STILL ALERT. BP TAKEN AND FSBS. BP 75/50. RAPID RESPONSE CALLED. 0900 PT STOPPED RESPONDING. CODE BLUE CALLED. CPR STARTED. 0908 PT INTUBATED. 0914 1 MG EPI GIVEN. 0915 1 AMP OF ATROPINE GIVEN. 0918 2MG NARCAN GIVEN. 0921 40MG OF VASOPRESSOR GIVEN. 0922 I.O. PLACED IN LEFT SHOULDER. 0923 1MG EPI. 0923 BP 91/17. 0924 1 AMP ATROPINE. 0928 1 MG EPI. 0929 1 AMP ATROPINE. 0933 1 MG EPI. 0935 20MG VASOPRESSOR. [address]. [address] ROBLEDO NOTIFIED. 1011 1115 [facility] NOTIFIED. 1300 BOBBY WITH [facility] TOOK PT.
== END 2019-10-20 13:00 | DRG 70 ==
LOC: D.REHAB 15:07
PROVIDERS: ADMIT Emergency Medicine; ATTEND Emergency Medicine
DX: G93.41 Metabolic encephalopathy (principal); R53.2 Functional quadriplegia; J96.21 Acute and chronic respiratory failure with hypoxia; N39.0 Urinary tract infection, site not specified; F17.203 Nicotine dependence unspecified, with withdrawal; R13.12 Dysphagia, oropharyngeal phase; K59.00 Constipation, unspecified; D64.9 Anemia, unspecified; J43.9 Emphysema, unspecified; M81.0 Age-related osteoporosis without current pathological fracture; M32.9 Systemic lupus erythematosus, unspecified; M79.7 Fibromyalgia; F41.8 Other specified anxiety disorders; G89.29 Other chronic pain; R53.1 Weakness; E31.20 Multiple endocrine neoplasia [MEN] syndrome, unspecified; I46.9 Cardiac arrest, cause unspecified; E86.0 Dehydration; I10 Essential (primary) hypertension; E31.21 Multiple endocrine neoplasia [MEN] type I